=== PATIENT | female | born 1970 ===

== ENCOUNTER 2018-05-30 11:19 | Outpatient (CLI) | payer OTHER | END 2018-05-30 11:27 | disposition home or self-care (01) | LOC: RAD 11:19 | DX: M54.5 Low back pain (principal); M54.16 Radiculopathy, lumbar region ==

== ENCOUNTER 2021-09-06 15:54 | Outpatient (CLI) | payer OTHER | END 2021-09-06 16:03 | disposition home or self-care (01) | LOC: RAD 15:54 | PROVIDERS: ATTEND General Practice | DX: M25.511 Pain in right shoulder (principal) ==